=== PATIENT | male | born 1995 | race Asian ===

== ENCOUNTER 2022-07-06 19:15 | Emergency (ER) | payer MEDICAID ==
[~2022-07-06] VITALS: Ht 175.3 cm; Wt 75.0 kg
[2022-07-06 19:18] VITALS: BP 136/88
== END 2022-07-06 22:12 | disposition left against medical advice (07) ==
LOC: ER 19:15
DX: Z53.21 Procedure and treatment not carried out due to patient leaving prior to being seen by health care provider (principal)